=== PATIENT | male | born 1970 | race Caucasian/White ===

== ENCOUNTER 2019-07-01 13:19 | Emergency (ER) | payer OTHER ==
[~2019-07-01] VITALS: Ht 170.2 cm; Wt 94.8 kg
[2019-07-01 13:29] VITALS: Ht 170.2 cm; Wt 94.8 kg
[2019-07-01 15:33] VITALS: BP 160/97
== END 2019-07-01 15:33 | disposition home or self-care (01) ==
LOC: ED 13:19
DX: S50.01XA Contusion of right elbow, initial encounter (principal); S20.221A Contusion of right back wall of thorax, initial encounter; Z98.890 Other specified postprocedural states; W18.30XA Fall on same level, unspecified, initial encounter; Y93.89 Activity, other specified; Y92.89 Other specified places as the place of occurrence of the external cause; Y99.8 Other external cause status; E11.9 Type 2 diabetes mellitus without complications